=== PATIENT | female | born 1960 | race Caucasian/White ===

== ENCOUNTER 2024-01-17 05:00 | Observation (INO) ==
--- NOTE | 2023-12-25 11:08 | PAT Medication Instructions ---
Medication Instructions Date of Service December 25, 2023 Home Medications albuterol sulfate 90 mcg/actuation aerosol inhaler 1 - 2 puff inhalation UD PRN Wheezing aspirin 325 mg tablet 325 mg PO QAM epinephrine 0.3 mg/0.3 mL injection, auto-injector 0.3 mg subcut UD PRN Anaphylaxis ezetimibe 10 mg tablet 10 mg PO QAM famotidine 20 mg tablet 20 mg PO BID insulin glargine 100 unit/mL (3 mL) subcutaneous pen (Lantus Solostar U-100 Insulin) 10 unit subcut HS levothyroxine 25 mcg tablet 25 mcg PO HS metformin 1,000 mg tablet 1,000 mg PO BID montelukast 10 mg tablet 10 mg PO HS semaglutide 2 mg/dose (8 mg/3 mL) subcutaneous pen injector (Ozempic) 8 mg subcut Q7D triamcinolone acetonide 0.1 % topical cream 1 applic topical UD PRN Skin Irritation valsartan 80 mg-hydrochlorothiazide 12.5 mg tablet 2 tab PO BID Continue as directed epinephrine 0.3 mg/0.3 mL injection, auto-injector 0.3 mg subcut UD PRN Anaphylaxis (if needed) ASK your prescriber and surgeon aspirin 325 mg tablet 325 mg PO QAM STOP taking 7 days before surgery semaglutide 2 mg/dose (8 mg/3 mL) subcutaneous pen injector (Ozempic) 8 mg subcut Q7D STOP taking 24 hours before surgery triamcinolone acetonide 0.1 % topical cream 1 applic topical UD PRN Skin Irritation DO NOT take the morning of surgery metformin 1,000 mg tablet 1,000 mg PO BID valsartan 80 mg-hydrochlorothiazide 12.5 mg tablet 2 tab PO BID Take morning of surgery With a small sip of water, OTHERWISE NOTHING TO EAT OR DRINK AFTER MIDNIGHT: albuterol sulfate 90 mcg/actuation aerosol inhaler 1 - 2 puff inhalation UD PRN Wheezing (use if needed; please bring with you to hospital day of surgery if possible) ezetimibe 10 mg tablet 10 mg PO QAM famotidine 20 mg tablet 20 mg PO BID Take evening before surgery albuterol sulfate 90 mcg/actuation aerosol inhaler 1 - 2 puff inhalation UD PRN Wheezing (if needed) famotidine 20 mg tablet 20 mg PO BID insulin glargine 100 unit/mL (3 mL) subcutaneous pen (Lantus Solostar U-100 Insulin) 10 unit subcut HS levothyroxine 25 mcg tablet 25 mcg PO HS metformin 1,000 mg tablet 1,000 mg PO BID montelukast 10 mg tablet 10 mg PO HS valsartan 80 mg-hydrochlorothiazide 12.5 mg tablet 2 tab PO BID Other Notes If you have any questions please call us at [phone] or [phone] or [phone] or [phone]
--- NOTE | 2023-12-27 11:57 | Anesthesiology Consultation ---
Date of Service December 27, 2023 Assessment & Plan (1) Encounter for pre-operative examination: - check BSG am DOS. - semaglutide instructions: Patient informed at PAT visit to stop 7 days prior to surgery-voiced understanding. Patient advised to check with prescriber to see if alternative diabetic management changes recommended while holding semaglutide-if so, patient to call back to PAT to update chart and discuss if any further preop medication instructions needed. - Case discussed in detail with Dr. Mcneil who advised patient is acceptable to proceed if surgeon does not have concerns with elevated A1c. Surgeon's office made aware. - Outpatient joint assessment: Patient is currently scheduled for inpatient pathway. If re-evaluated and patient/surgeon requests outpatient pathway, patient is not recommended candidate for outpatient joint program from anesthesia standpoint. Chart Review Chart Review: Acceptable Risk for Surgery and Patient seen in Pre Admission Testing Teaching & Discussion Pre-Anesthesia Teaching/Discussion Notes: Instructed NPO after midnight before surgery, except medications with 15 cc of water. Medication instructions provided according to the PAT guidelines. History Surgery Operation Date: 01/17/24 08:50 Proposed Procedures p Right Total Hip Arthroplasty - Ramirez Haynes MD Height/Weight Height: 5 ft 10 in Weight: 133.4 kg Allergies Allergy/AdvReac Type Severity Reaction Status Date / Time clarithromycin Allergy itchy rash Verified 12/24/23 14:21 codeine Allergy Headache Verified 12/24/23 14:21 insulin glargine Allergy Hives Verified 12/24/23 14:21 Penicillins Allergy Rash Verified 12/24/23 14:21 perfume Allergy itching Verified 12/24/23 14:21 skin, SOB [id number] Reductase Allergy muscle Verified 12/24/23 14:21 Inhibitor necrosis sulfamethoxazole Allergy throat Verified 12/24/23 14:21 [From Bactrim] swelling, itch and rash sulfite Allergy swelling Verified 12/24/23 14:21 in throat, coughing trimethoprim [From Bactrim] Allergy throat Verified 12/24/23 14:21 swelling, itch and rash Medications Home Medications Medication Instructions Recorded Confirmed Last Taken albuterol sulfate 90 mcg/actuation 1 - 2 puff inhalation UD PRN 12/24/23 12/24/23 Unknown aerosol inhaler Wheezing aspirin 325 mg tablet 325 mg PO QAM 12/24/23 12/24/23 Unknown epinephrine 0.3 mg/0.3 mL 0.3 mg subcut UD PRN Anaphylaxis 12/24/23 12/24/23 Unknown injection, auto-injector ezetimibe 10 mg tablet 10 mg PO QAM 12/24/23 12/24/23 Unknown famotidine 20 mg tablet 20 mg PO BID 12/24/23 12/24/23 Unknown insulin glargine 100 unit/mL (3 10 unit subcut HS 12/24/23 12/24/23 Unknown mL) subcutaneous pen (Lantus Solostar U-100 Insulin) levothyroxine 25 mcg tablet 25 mcg PO HS 12/24/23 12/24/23 Unknown metformin 1,000 mg tablet 1,000 mg PO BID 12/24/23 12/24/23 Unknown montelukast 10 mg tablet 10 mg PO HS 12/24/23 12/24/23 Unknown semaglutide 2 mg/dose (8 mg/3 mL) 8 mg subcut Q7D 12/24/23 12/24/23 Unknown subcutaneous pen injector (Ozempic) triamcinolone acetonide 0.1 % 1 applic topical UD PRN Skin 12/24/23 12/24/23 Unknown topical cream Irritation valsartan 80 2 tab PO BID 12/24/23 12/24/23 Unknown mg-hydrochlorothiazide 12.5 mg tablet Past Medical History Medical History (Updated 12/27/23 @ 12:04 by Brianne Alcaraz PA-C) Asthma inh prn>"only gets in the spring"-last rescue inhaler use 2 months ago CLL (chronic lymphocytic leukemia) Diabetes mellitus, type 2 IDDM History of anesthesia reaction back in the , awareness during eyelid procedure and right heel Hyperlipidemia Hypertension controlled, stable per pt Hypothyroidism Seasonal allergies Sleep apnea BiPAP-compliant Patient denies h/o stroke, seizures, heart attack, heart failure, blood clots/DVTs or blood transfusions. Exercise / Class Metabolic Activity II 4-5 Yardwork/Stairs/Walk up hill (denies chest discomfort or shortness of breath with 1 FOS) Past Surgical History Surgical History (Updated 12/27/23 @ 12:04 by Brianne Alcaraz PA-C) History of lumbar discectomy History of surgical removal of skin lesion on eyelid-awareness during procedure History of tonsillectomy and adenoidectomy Hx of colonoscopy Hx of foot surgery sx on right heel Past Anesthesia History No Family Hx of Anesthesia Complications and Other (see above) History of PONV No Hx of PONV and No Hx of Motion Sickness Social History Smoking Status: Never smoker Do You Dip or Chew Tobacco: No Hx Alcohol Use: Yes alcohol intake frequency: holidays/special occasions only Hx Substance Use: No substance use type: does not use Review of Systems Patient reports having nasal congestion 8 days ago and home COVID tests were negative-symptoms have since resolved. Patient denies chest pain, shortness of breath, dyspnea on exertion, reflux, fever, chills, cough, wheezing, or palpitations. Physical Exam Vital Signs Vitals BP 128/82 P 67 TEMP 98.4 SP02 97% on RA RESP 18 Physical Patient resting comfortably in chair in no acute distress, alert and oriented, responding appropriately throughout visit Full cervical extension range of motion without pain TMD <3 finger breadths Mallampati Score 3 Dentition: several crowns, denies chipped or loose teeth, caps, implants or bridges Lungs: normal respiratory effort. Good air movement, clear throughout to auscultation, no adventitious breath sounds Cardiac: regular rate and rhythm, no murmurs noted Carotid arteries: negative bruit bilat Lab Results Anesthesia Preop Results Results Anesthesia Widget: WBC 16.02 K/ul (4.8-10.8) H 12/27/23 Hgb 13.4 g/dl (12.0-16.0) 12/27/23 Hct 41.6 % (37.0-47.0) 12/27/23 Plt 228 K/uL (130-400) 12/27/23 Na 137 mmol/L (136-145) 12/27/23 K 3.9 mmol/L (3.5-5.1) 12/27/23 Cl 100 mmol/L (98-107) 12/27/23 CO2 26 mmol/L (21-32) 12/27/23 BUN 22 mg/dl (6-23) 12/27/23 Creat 1.05 mg/dl (0.6-1.2) 12/27/23 Glucose Level 165 mg/dl (70-99(Fasting)) H 12/27/23 PT 10.9 Seconds (9.0-12.0) 02/09/24 PTT 26 Seconds (21-31) 12/27/23 INR 1.0 (0.9-1.1) 12/27/23 HA1c 8.4 % (4.5-5.6) H 12/27/23 Blood Type A Positive 12/27/23 Antibody Screen NEGATIVE 12/27/23 Testing Laboratory Results Surgeon's office made aware of elevated A1c. Electrocardiogram Date: 12/27/23 Unusual P axis, possible ectopic atrial rhythm Left axis deviation RBBB Chest X-Ray Date: 12/27/23 No active disease in the chest.
--- NOTE | 2024-01-12 09:04 | History & Physical Report ---
Date of Service January 12, 2024 Assessment & Plan (1) Arthritis of right hip: 63-year-old female with multiple medical comorbidities including obesity, hypertension, diabetes, elevated cholesterol, multiple allergies with advanced right hip arthritis. She is failed conservative measures. She like to have her hip fixed. Plan: Nona taken the operating do a right total hip replacement. The risks Mente this procedure explained to the patient and include but not limited to DVT PE infection neurological and vascular bleeding palm pain limb range of motion this is fairly her symptoms incomplete relief of symptoms excetra. The patient understands and desires to proceed. Informed consent was obtained. She struggled with diabetes control. We really encouraged her to get with her medical doctor and get this under as good control as possible. She understands that her size and with his diabetes the risk of infection and thrombosis is increased. She like to proceed. She is planned to be discharged with [facility] home health program. Her daughter who lives locally is can assist in her care. History of Present Illness Chief Complaint: . Right hip pain. Primary Care Provider: NO PCP . Patient is a 63-year-old female from [facility] [employer] and an employee at [employer] in [place] who presents specifically for surgical treatment of her right hip. She is about a 10-year history of increasing right hip pain discomfort describes gotten worse over time. Describes lateral hip pain groin pain thigh pain rating down to her knee. She been seen at [facility] and treated conservatively which has become less successful over time. Pains become more debilitating. She limps more as the day goes on. She would like to have her hip fixed. She comes to our institution as her daughter lives in this area to get help her recover. Patient does have a significant history of diabetes and struggles with diabetes control. Elevated A1c and that she has been trying to get this under better control with her primary care doctor. Allergies Allergy/AdvReac Type Severity Reaction Status Date / Time clarithromycin Allergy itchy rash Verified 12/24/23 14:21 codeine Allergy Headache Verified 12/24/23 14:21 insulin glargine Allergy Hives Verified 12/24/23 14:21 Penicillins Allergy Rash Verified 12/24/23 14:21 perfume Allergy itching Verified 12/24/23 14:21 skin, SOB [id number] Reductase Allergy muscle Verified 12/24/23 14:21 Inhibitor necrosis sulfamethoxazole Allergy throat Verified 12/24/23 14:21 [From Bactrim] swelling, itch and rash sulfite Allergy swelling Verified 12/24/23 14:21 in throat, coughing trimethoprim [From Bactrim] Allergy throat Verified 12/24/23 14:21 swelling, itch and rash Home Medications Medication Instructions Recorded Confirmed Type albuterol sulfate 90 mcg/actuation 1 - 2 puff inhalation UD PRN 12/24/23 12/24/23 History aerosol inhaler Wheezing aspirin 325 mg tablet 325 mg PO QAM 12/24/23 12/24/23 History epinephrine 0.3 mg/0.3 mL 0.3 mg subcut UD PRN Anaphylaxis 12/24/23 12/24/23 History injection, auto-injector ezetimibe 10 mg tablet 10 mg PO QAM 12/24/23 12/24/23 History famotidine 20 mg tablet 20 mg PO BID 12/24/23 12/24/23 History insulin glargine 100 unit/mL (3 10 unit subcut HS 12/24/23 12/24/23 History mL) subcutaneous pen (Lantus Solostar U-100 Insulin) levothyroxine 25 mcg tablet 25 mcg PO HS 12/24/23 12/24/23 History metformin 1,000 mg tablet 1,000 mg PO BID 12/24/23 12/24/23 History montelukast 10 mg tablet 10 mg PO HS 12/24/23 12/24/23 History semaglutide 2 mg/dose (8 mg/3 mL) 8 mg subcut Q7D 12/24/23 12/24/23 History subcutaneous pen injector (Ozempic) triamcinolone acetonide 0.1 % 1 applic topical UD PRN Skin 12/24/23 12/24/23 History topical cream Irritation valsartan 80 2 tab PO BID 12/24/23 12/24/23 History mg-hydrochlorothiazide 12.5 mg tablet Past Med/Surg History Medical History History of anesthesia reaction back in the , awareness during eyelid procedure and right heel Sleep apnea BiPAP-compliant Asthma inh prn>"only gets in the spring"-last rescue inhaler use 2 months ago Hypothyroidism CLL (chronic lymphocytic leukemia) Seasonal allergies Diabetes mellitus, type 2 IDDM Hyperlipidemia Hypertension controlled, stable per pt Surgical History History of surgical removal of skin lesion on eyelid-awareness during procedure History of lumbar discectomy Hx of foot surgery sx on right heel Hx of colonoscopy History of tonsillectomy and adenoidectomy Social History Smoking Status: Never smoker Second Hand Exposure: No; Do You Dip or Chew Tobacco: No; Tobacco Cessation Education Requested by Patient: No Hx Alcohol Use: Yes Hx Substance Use: No Preferred Language: Citizen Of [place] Communication Ability: Effective Research Fellow Required: No Beliefs That Will Affect Care: None Current Living Situation: Family and Significant Other Other Information That Helps Us Care for You: No Feels Safe at Home: Yes Safety Concerns: Feels Safe At This Time Assistive Devices: BiPap and Glasses Review of Systems All systems reviewed & are unremarkable except as noted in HPI & below. Physical Exam . Physical examination reveals a pleasant middle-aged female. Looks to be in reasonably good health. Examination of the right hip reveal patient walks with an antalgic gait. She limps on the right side. She is about half a centimeter shorter on the right leg compared to the left. She had a very stiff hip with internal rotation to -10. This recreates pain. Negative straight leg raise. She is neurologically intact. Constitutional WD/WN, vitals as above Neck trachea midline, no thyromegaly Respiratory normal respiratory effort, lungs clear to auscultation Cardiovascular RRR, no murmur, no edema Gastrointestinal (Abdomen) normal bowel sounds, soft, nontender, no hepatosplenomegaly Results & Data Results & Data Laboratory Results . Diagnostic Findings . X-rays the right hip are reviewed. Shows advanced right hip arthritis. She got complete loss of the joint space. She has subchondral sclerosis. She got osteophytes around the femoral head and acetabulum. PG Care Time/CCT Total # of Minutes Spent Total Time Spent with Patient: Total time spent is greater than 50% in coordination of care (as documented) at patient's floor/unit and/or counseling patient: Coding Level of Care Code None Diagnoses Arthritis of right hip M16.11
[2024-01-17] MEDS ORDERED: ceFAZolin 2000MG 2,000 MG/15 ML SYR IV SCH (06:00)
[2024-01-17] MEDS: ACETAMINOPHEN 500 MG TAB PO SCH ×2 (06:17→11:48)
[2024-01-17] MEDS: Scopolamine 1 MG TDSY TD SCH (06:18)
[2024-01-17] MEDS: METOCLOPRAMIDE HCL 10 MG TABLET PO SCH (06:18)
[2024-01-17] MEDS: FAMOTIDINE 20 MG TAB PO SCH ×2 (06:19→20:19)
[2024-01-17] MEDS: LR 60ML/HR IV SCH (06:19)
[2024-01-17] MEDS: CeleBREX 200 MG CAP PO SCH (06:19)
[2024-01-17] MEDS: LR 500ML BOLUS, THEN 15ML/HR IV SCH (06:19)
[2024-01-17] MEDS ORDERED: PROPOFOL IV EMULSION 10 MG/ML 20 ML VIAL IV ONE ×2 (06:21→08:11)
[2024-01-17] MEDS ORDERED: MIDAZOLAM HCL 1 MG/ML 2ML VIAL ONE ×2 (06:21→08:13)
[2024-01-17] MEDS ORDERED: fentaNYL citrate PF 100 MCG/2 ML VIAL ONE (06:21)
[2024-01-17] MEDS ORDERED: LIDOCAINE 2% 2 ML VIAL/AMP(20MG/ML) INFIL ONE (06:22)
[2024-01-17] MEDS ORDERED: DEXAMETHASONE SOD INJ 4 MG/ML VIAL ONE (06:22)
[2024-01-17] MEDS ORDERED: ONDANSETRON INJ 2 MG/ML 2 ML VIAL ONE (06:22)
[2024-01-17] MEDS ORDERED: BUPIVACAINE 0.5 % 5 MG/1 ML PF 10ML VIAL ONE (06:26)
--- NOTE | 2024-01-17 06:54 | History & Physical Bridge Note ---
Date of Service January 17, 2024 History & Physical Bridge Note I have examined the patient, reviewed the History & Physical and in the interval since the performance of the History & Physical I have noted the following changes of clinical significance: no changes noted
[2024-01-17] MEDS: TRANEXAMIC ACID 1,000 MG **IV Pre-op IV SCH (06:55)
[2024-01-17] MEDS ORDERED: ATROPINE SULFATE 0.1 MG/ML 10ML SYR IV PRN (07:31)
[2024-01-17] MEDS ORDERED: ePHEDrine sulfate 50 MG/ML AMP IV PRN (07:31)
[2024-01-17] MEDS ORDERED: ePHEDrine sulfate 50 MG/ML AMP ONE (07:43)
[2024-01-17] MEDS ORDERED: PHENYLEPHRINE 100MCG/ML 10ML SYR IV ONE (08:23)
[2024-01-17] MEDS: BUPIVACAINE/EPINEPHRINE 0.5% MPF 1:200,000 30 ML VIAL ONE (08:29)
[2024-01-17] MEDS: BUPIVACAINE 0.5 % 5 MG/1 ML MPF 30ML VIAL ONE (08:29)
--- NOTE | 2024-01-17 09:05 | Operative Report ---
PG Post Operative Report Pre & Post Diagnosis Operation Date: 01/17/24 07:00 Pre-Op Diagnosis: Arthritis of right hip Post-Op Diagnosis: Arthritis of right hip I identified the patient and participated in the time-out.: Yes Procedure Operation Date: 01/17/24 07:00 Actual Procedures p Right Total Hip Arthroplasty(Right) - Ramirez Haynes MD Surgeon Ramirez Haynes MD Boat Designer Cecilio Frazier PA-C Estimated Blood Loss 100 Findings Consistent with Post-Op Diagnosis Specimens Right femoral head sent for pathology. 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 She is failed conservative measures. X-rays show advanced hip arthritis. She does have fairly poorly controlled diabetes and we spent some time trying to optimize her medical situation. The patient is now indicated for surgical management. Description of Procedure Operative implants consist of: 1 Biomet G7 size 56 mm acetabular shell. 2. Gaines hole office agent. 3. 6.5 cancellous acetabular screws 1 at 35 mm length 1 to 25 mm length. 4. Highly cross-linked polyethylene liner with a 56 mm outer diameter, 36 mm inner diameter and a sparrow placed inferior and posterior. 5. DePuy Corail KLA 125 degree angle short stem size 12 femoral stem. 6. +5/36 mm ceramic articular ball. The patient was taken to the operating, identified, placed on the operating table in the supine position but all contact areas were appropriately padded. IV antibiotic 5 by anesthesia team. A spinal anesthetic and been implemented holding area. A Hooper catheter was placed in sterile fashion. The patient was then placed in the left lateral decubitus position. An axillary roll was placed. Stulberg hip positioner was used for positioning. The right hip and leg were then prepped and draped in usual sterile fashion. A posterolateral approach of the right hip was then performed to a curvilinear incision centered over the greater trochanter. Sharp dissection was got through subcutaneous tissue down to level the IT band gluteal fascia. The IT band gluteal fascia were incised longitudinally in line with skin incision. The underlying greater bursa was excised. The piriformis and external rotators along with the posterior hip joint capsule were then released from the posterior aspect hip as a single layer. Great care was taken throughout the procedure protect the sciatic nerve at all times. Hip was internally rotated and dislocated. A femoral neck osteotomy cut was made with Final Cut about 15 mm above the lesser trochanter. Femoral head was removed and sent for pathology. The femur was retracted anteriorly. Attention drawn the acetabulum. The tissues around the acetabulum are fairly stiff. I did have to excise the labrum and then do some soft tissue releases superior and anterior. The femur was retracted anteriorly. The pulmonary fat was excised. Sequential reaming the acetabular was then performed again with size 45 and progressing up 55. Her bone was extremely sclerotic. I then reamed a little bit with a 56 reamer and placed a 56 mm acetabular component in about 40 degrees lateral opening and 20 degrees of anteversion. It was fixed with two 6.5 screws. Anterior osteophyte was removed. A trial liner was placed. Attention drawn the femur. The proximal femur was entered with a cookie cutter followed by canal finder and. I then broached beginning with a size 8 and progressing up to a 12. Got excellent fitted to 12. Calcar reamer was used smoothed off the calcar. I then trialed the hip and the standard implants were just too tight in extension. Therefore I elected to use a short neck. We used a short neck with a +5 head and the hip was fully stable full extension and external rotation and flexion to 90 degrees internal rotation 50 degrees. The hip was still a bit tight size anterior but he felt her leg lengths are equal. We elect to place these implants. Nupathe all trial implants were removed. An apex hole office agent was placed. Highly cross-linked polyethylene liner was placed. I did use a sparrow in order to maximize her stability in flexion and internal rotation. A size 12 KLA short neck 125 degree angle femoral stem was placed. A +5/36 mm ceramic articular ball was placed. Hip was located and once again found to be stable. Attention drawn toward closing. The wound was irrigated close possible pulsatile lavage solution. I did inject locally with 60 cc of half percent Marcaine with epinephrine. The posterior capsule and external rotators then repaired through drill holes in the posterior trochanter with #2 Tycron suture. The IT band gluteal fascia then closed in 1 PDS suture in a running fashion. Subcutaneous tissues closed with 2 layers the deep layer #2 Vicryl suture and subcutaneous tissues with 2 Dexon suture in a buried interrupted fashion the skin was closed skin jt. Leg was then cleaned and dried and a Prevena VAC dressing was applied due to the thick soft tissue envelope. Patient then transferred to the recovery room in stable condition. Patient tolerated the procedure well and there were no complications. Cecilio Frazier, my physician assistant executive housekeeper, was present for the entire procedure. His assistance was essential and required for appropriate patient positioning, prepping and draping, surgical exposure, performing the technical details of the operation, placement the implants, closure of the wound, and placement of the sterile bandage. I attest to the content of the Intraoperative Record and any orders documented therein. Any exceptions are noted below.
--- NOTE | 2024-01-17 09:23 | XRay Report ---
AP PELVIS, CROSSTABLE LATERAL RIGHT HIP History: Right total hip arthroplasty. Degenerative arthritis. Postop. FINDINGS: The patient is status post a right total hip arthroplasty. The hardware is intact. No fract ure or dislocation. Skin jt are in place. IMPRESSION: Right total hip arthroplasty. No evidence for hardware complication ACT 112: Negative or not required by law. Electronically signed by: Julius Coleman M.D. 01/17/2024 9:21 AM
--- NOTE | 2024-01-17 10:20 | Anesthesiology Progress Note ---
Date of Service January 17, 2024 Anesthesia Post Procedure Vital Signs Vital Signs: Temp Pulse Pulse Resp BP Pulse Ox O2 Del Method 01/17/24 10:00 88 15 131/64 94 Room Air 01/17/24 09:50 90 20 107/72 96 Room Air 01/17/24 09:40 87 12 114/53 L 95 Room Air 01/17/24 09:30 36.5 C 88 17 126/57 L 97 Room Air 01/17/24 09:20 94 H 21 115/54 L 94 Room Air 01/17/24 09:10 90 17 109/51 L 95 Room Air 01/17/24 09:00 89 19 122/52 L 100 Oxymask 01/17/24 08:50 36.5 C 92 H 17 90/58 L 100 Oxymask 01/17/24 05:48 37.2 C 68 20 144/74 H 96 Room Air O2 Flow Rate 01/17/24 10:00 01/17/24 09:50 01/17/24 09:40 01/17/24 09:30 01/17/24 09:20 01/17/24 09:10 01/17/24 09:00 5 01/17/24 08:50 5 01/17/24 05:48 Pain Intensity Right Knee: Pain Intensity: 5 Transfer of Care Handoff Completed per policy Notes Mental Status: alert / awake / arousable Patient Amnestic to Procedure: Yes Nausea / Vomiting: adequately controlled Pain: adequately controlled Airway Patency, RR, SpO2: stable & adequate BP & HR: stable & adequate Hydration State: stable & adequate Neuraxial Anesthesia: was administered and sensory block is resolving Anesthetic Complications: no major complications apparent
[2024-01-17] MEDS ORDERED: NALOXONE HCL 0.4 MG/1 ML VIAL/CARP IV PRN (10:29)
[2024-01-17] MEDS ORDERED: PHARMACY GLYCEMIC MGMT CONSULT PRN (10:29)
[2024-01-17] MEDS ORDERED: diphenhydrAMINE Capsule 25 MG CAP PO PRN (10:29)
[2024-01-17] MEDS ORDERED: ONDANSETRON INJ 2 MG/ML 2 ML VIAL IV PRN (10:29)
[2024-01-17] MEDS ORDERED: ALBUTEROL HFA 8 GM INHALER INH PRN (10:29)
[2024-01-17] MEDS ORDERED: MAGNESIUM HYDROXIDE SUSP 30 ML UDC PO PRN (10:29)
[2024-01-17] MEDS ORDERED: TRIAMCINOLONE ACET 0.1% CR 15 GM TUBE TOP PRN (10:29)
[2024-01-17] MEDS ORDERED: bisacodyL 10 MG SUPP PR PRN (10:29)
[2024-01-17] MEDS ORDERED: NON-FORMULARY MEDICATION (Semaglutide [Ozempic] 2 mg/dose (8 mg/3 mL) pen injector) SQ SCH (10:29)
[2024-01-17] MEDS ORDERED: METOCLOPRAMIDE HCL INJ 5 MG/ML 2 ML VIAL IV PRN (10:29)
[2024-01-17] MEDS ORDERED: ALUMINUM/MAGNESIUM SUSP 30 ML UDC PO PRN (10:29)
[2024-01-17] MEDS ORDERED: HYDROmorphone INJ 0.5 MG/0.5 ML SYR IV PRN (10:29)
[2024-01-17] MEDS ORDERED: GLUCOSE 10 TAB/TUBE PO PRN (11:00)
[2024-01-17] MEDS ORDERED: CARBOHYDRATES FOR HYPOGLYCEMIA PO PRN (11:00)
[2024-01-17] MEDS ORDERED: DEXTROSE 50% 50 ML SYRINGE IV PRN (11:00)
[2024-01-17] MEDS ORDERED: GLUCOSE 40% GEL 15 GM TUBE PO PRN (11:00)
[2024-01-17] MEDS ORDERED: GLUCAGON FOR INJ 1 MG VIAL IM PRN (11:00)
[2024-01-17] MEDS: SODIUM CHLORIDE 0.9% 1,000 ML IV SCH (11:29)
[2024-01-17] MEDS: ASPIRIN 81 MG ECTAB PO SCH (11:47)
[2024-01-17] MEDS: SENNA 8.6 MG TAB PO SCH (11:47)
[2024-01-17] MEDS: DOCUSATE SODIUM 100 MG CAP PO SCH (11:47)
[2024-01-17] MEDS: KETOROLAC TROMETHAMINE 15 MG/ML VIAL IV SCH (11:47)
[2024-01-17] MEDS: MULTIVITAMIN TAB PO SCH (11:47)
--- NOTE | 2024-01-17 11:52 | Pharmacy Report ---
Pharmacy Glycemic Short Note 2 - Date of Service January 17, 2024 - Glycemic Short BSG Results (Last 24 hours): 01/17/24 01/17/24 01/17/24 05:41 08:53 09:01 POC Glucose 199 H 260 H 235 H 01/17/24 11:27 POC Glucose 242 H OUTPATIENT ANTIDIABETIC REGIMEN: * Lantus 14 units SQ qPM * Metformin 1 gm PO BID * Ozempic 8 mg SQ weekly (on Saturdays) * HbA1c: 8.4% (12/27/23) ASSESSMENT: * Ms Argueta is a 63yo diabetic F, POD 0 s/p R total hip this morning with Dr Haynes. * It appears as though pt received 4mg IV dexamethasone pre-operatively. Pt is scheduled to receive 10mg IV DXM tomorrow morning x1 dose. Expect pt to experience steroid-induced hyperglycemia as a result. * Fasting/pre-op BSGs were elevated this morning. * Metformin and Ozempic held post-op and pt initiated on SQ basal/bolus insulin regimen. * Pharmacy will follow and adjust regimen as indicated. PLAN FOR INPATIENT GLYCEMIC CONTROL: * Hold outpatient oral diabetes medications * Basal insulin * Lantus 30 units SQ post-op * Lantus 0-15 units SQ HS, based on BSG (see EMR for details) * Bolus insulin * NovoLog per scale ACHS or Q6hrs while NPO * Goal Range: Low 110 mg/dL - High 140 mg/dL * Correction Factor: 20 mg/dL/unit * Nutritional / Prandial insulin per carb ratio of 1 unit per 6 grams CHO consumed
[2024-01-17] MEDS: LANTUS PER UNIT CHARGE SC ONE (12:20)
[2024-01-17] MEDS: INSULIN ASPART PER UNIT CHARGE SC SCH (12:20)
[2024-01-17] MEDS: traMADol HCL 50 MG TABLET PO PRN (13:42)
[2024-01-17] MEDS: TRANEXAMIC ACID / 0.7% NACL 1,000 MG/100 ML BAG IV SCH (14:33)
[2024-01-17] MEDS: ceFAZolin 2000MG 2,000 MG/15 ML SYR IV SCH (14:35)
[2024-01-17] MEDS: Scopolamine CHECK PATCH PLACEMENT SCH (16:07)
[2024-01-17] MEDS: ASCORBIC ACID 500 MG TAB PO SCH (16:08)
[2024-01-17] MEDS: LANTUS PER UNIT CHARGE SC SCH (20:15)
[2024-01-17] MEDS: VALSARTAN 80 MG TAB PO SCH (20:17)
[2024-01-17] MEDS: hydroCHLOROthiazide 25 MG TAB PO SCH (20:18)
[2024-01-17] MEDS: MONTELUKAST SODIUM 10 MG TABLET PO SCH (20:18)
[2024-01-17] MEDS: LEVOTHYROXINE SODIUM 25 MCG TABLET PO SCH (20:18)
[2024-01-17] MEDS: LORATADINE 10 MG TAB PO SCH (20:18)
[2024-01-17] MEDS ORDERED: SENNA 8.6 MG TAB PO SCH (21:00)
--- OUTSIDE RECORDS SUMMARY | 2024-01-18 04:53 | External Medical Summary | Summary of Care ---
Author Name Unknown Organization [facility] Address [address] [place] [address] Phone [phone] Care Team Providers Care Biology Teacher Name Role Phone Jack Leahy MD Primary Care Provider + Reason for Visit * Reason Comments Dosage Adjustment In Person (Anticoag Cl inic) Diabetes Follow-Up Lipid Management Hypertension Encounter Details Date Type Department Care Team (Late st Contact Info) Description 01/16/2024 9:00 AM [facility], [place] [address] [place] [address] [facility], [facility] [address] [place] [address] Type 2 diabetes mellitus without complication, without long-term current use of insulin ([facility])* Allergies Active Allergy Reactions Criticality Noted Date Comments Bactrim Edema airway,Itching High 02/23/2013 Clarithromycin Itching 12/04/2019 Codeine Other (Please comment) 02/23/2013 Headache Food (See Comments) 02/23/2013 Sulfites in foods Gluten Edema Other,Flushing 07/02/2014 Insulin Glargine Rash 07/08/2023 Other Allergy (See Comments) 02/23/2013 Cleaning solutions and certain perfumes,grass Penicillins Rash 02/23/2013 Pollen Itching 02/23/2013 Statins Muscle pain 02/23/2013 With rhabdomyolosis - tried two different statin with same results Insulin Degludec Rash 07/08/2023 documented as of this encounter (statuses as of 01/16/2024) Medications Medication Sig Dispensed Refills Start Date End Date Status CLARITIN 10 MG PO TABS 1 tab by mouth once daily 0 Active Misc. Devices MISC Use as directed at bedtime. CPAP 0 Active Vitamin D, Cholecalciferol, 1000 UNITS TABS Take 1 Tablet by mouth in the morning. 0 Active B Complex Vitamins (VITAMIN-B COMPLEX) Tablet Take 1 Tab by mouth daily. 0 Active NATURAL SUPPLEMENTIndication s:R lipoic acid 100mg 2 tabs in the morning Take by mouth daily. Indications: R lipoic acid 100mg 2 tabs in the morning 0 Active Cranberry 42741 MG CAPS Take by mouth daily. 0 Active Albuterol Sulfate HFA 108 (90 Base) MCG/ACT Inhalation Aerosol Solution Inhale two puffs every four hours for cough, wheeze, shortness of breath as needed. 36 g 3 03/16/2022 Active metFORMIN HCl 1000 MG Oral Tablet (Glucophage)Indicati ons:Type 2 diabetes mellitus with hemoglobin A1c goal of less than 7.0% (HCC) TAKE ONE TABLET BY MOUTH TWICE A DAY WITH MORNING AND EVENING MEALS 200 Tablet 3 04/22/2023 4 Active Levothyroxine Sodium 25 MCG Oral Tablet (Levoxyl)Indications :Acquired hypothyroidism TAKE 1 TABLET BY MOUTH DAILY AT LEAST 30 MINUTES PRIOR TO FIRST MEAL OF THE DAY OR OTHER MEDICATIONS 90 Tablet 2 02/20/2023 4 Active Ezetimibe 10 MG Oral Tablet (Zetia)Indications:D yslipidemia, goal LDL below 100 TAKE ONE TABLET BY MOUTH EVERY MORNING 90 Tablet 3 07/11/2023 4 Active Aspirin 325 MG Oral Tablet Take 2 Tablets by mouth in the morning. with food.. 100 Tablet 5 07/29/2023 Active Olopatadine HCl 0.6 % Nasal Solution USE TWO SPRAYS IN EACH NOSTRIL TWICE A DAY 91.5 g 3 09/02/2023 Active Ozempic (2 MG/DOSE) 8 MG/3ML Subcutaneous Solution Pen-injector (Semaglutide (2 MG/DOSE))Indications :Type 2 diabetes mellitus without complication, without long-term current use of insulin (HCC) Inject 2 mg under the skin once a week. 9 mL 3 09/16/2023 Active FreeStyle Carlos 3 Sensor USE DIRECTED TO CHECK GLUCOSE 6 Each 3 10/31/2023 4 Active Arexvy 120 MCG/0.5ML Intramuscular Suspension Reconstituted 0 10/09/2023 Active Famotidine 20 MG Oral Tablet (Pepcid) Take one tablet by mouth twice per day. 180 Tablet 3 11/28/2023 Active EPINEPHrine 0.3 MG/0.3ML Injection Solution Auto-injector (Autoinjector) FOR A SEVERE REACTION INJECT IN THE OUTER THIGH FOLLOWING INSTRUCTIONS ON PACKAGE AND GO TO THE EMERGENCY ROOM 2 Each 1 12/04/2023 5 Active Fluticasone-Salmeter ol 250-50 MCG/ACT Inhalation Aerosol Powder Breath Activated (Advair Diskus) INHALE ONE PUFF BY MOUTH IN THE MORNING AND ONE PUFF BEFORE BEDTIME 180 Each 3 12/04/2023 5 Active Valsartan-hydroCHLOR Othiazide 80-12.5 MG Oral Tablet (Diovan Hct)Indications:Hype rtension goal BP (blood pressure) < 140/90 Take 2 Tablets by mouth in the morning. 20 Tablet 0 12/05/2023 Active Valsartan-hydroCHLOR Othiazide 80-12.5 MG Oral Tablet (Diovan Hct) Take 2 Tablets by mouth in the morning. 200 Tablet 3 12/05/2023 Active NovoLOG FlexPen 100 UNIT/ML Subcutaneous Solution Pen-injector (insulin aspart)Indications:T ype 2 diabetes mellitus without complication, without long-term current use of insulin (HCC) Inject 8-10 units under the skin three times daily with meals 0 12/19/2023 Active BD Pen Needle Nadia 2nd Gen 32G X 4 MM (Insulin Pen Needle)Indications:T ype 2 diabetes mellitus without complication, without long-term current use of insulin (HCC) Use with insulins 3x daily 300 Each 1 12/23/2023 Active Insulin Glargine Solostar 100 UNIT/ML Subcutaneous Solution Pen-injector (Lantus SoloStar)Indications :Type 2 diabetes mellitus without complication, without long-term current use of insulin (HCC) Inject 10 Units under the skin daily. 15 mL 0 12/23/2023 Active documented as of this encounter (statuses as of 01/16/2024) Active Problems Problem Noted Date Diagnosed Date CLL (chronic lymphocytic leukemia) 01/24/2018 Allergic asthma, moderate persistent, uncomplica trung 01/21/2018 Environmental allergies 01/21/2018 Statin intolerance 07/12/2017 Acquired hypothyroidism 12/12/2015 DM w/o complication type II 08/23/2015 Overview: Since 10/02 Allergic rhinitis 07/30/2013 Obstructive sleep apnea 07/07/2013 Obesity, morbid (more than 1 00 lbs over ideal weight or BMI > 40) 07/07/2013 Dyslipidemia, goal LDL below 70 02/23/2013 Hypertension goal BP (blood pressure) < 140/90 documented as of this encounter (statuses as of 01/16/2024) Resolved Problems Problem Noted Date Diagnosed Date Resolved Date Edema 09/27/2016 07/29/2023 Advanced directives, counseling/discussion 07/15/2015 07/12/2017 Asthma with severity to be determined 12/28/2014 02/09/2016 Asthma, cough variant 12/28/20142016 Metabolon Quantose IR Resear Study*[id number] 08/02/2014 10/27/2014 Overview: METABOLON QUANTOSE IR STUDY. PROJECT: #[id number], FLUX PLANT OPERATOR: Toni Hopkins MD. SUMMARY: The Use of a Novel Insulin Resistance Test as a Monitoring Indicator of Glycemic Control in Prediabetics and Diabetics treated with metformin combined with lifestyle intervention. CONTACTS: During normal business hours, contact Justina Glez RN, CCRC at ; after hours Density Control Puncher via the [facility] hospital teasel gig operator Chronic rhinitis 07/30/2013 01/04/2017 Cough 07/30/2013 01/04/2017 Cough due to bronchospasm 07/30/2013 Oral allergy syndrome 07/30/20132016 KLAUDIA on CPAP 02/23/2013 11/12/2013 Hypertrichosis 02/23/2013 08/11/2018 documented as of this encounter (statuses as of 01/16/2024) Immunizations Name Administration Dates Next Due COVID-19 mRNA, LNP-s, No Pre serve, 2-Dose Series (ContentDJ) 08/18/2021,12/03/2020,11/12/2020 COVID-19, LNP-s, No Preserve , Isauro-sucrose, Ages 12+ (Pfizer) 03/06/2022 COVID-19, MRNA-LNP, 23-24, P F, 30 MCG/0.3 mL, 12 YRS AND ABOVE, IM (PFIZER-Comirnaty) 08/14/2023 Covid-19, Mrna, Lnp-s, Pf, B ivalent, 30 Mcg, IM, 12 yrs and above (Pfizer) 08/02/2022 Pneumococcal Conjugate Vacc, 13 Valent (Prevnar) 09/27/2016 Pneumococcal Polysaccharide PPV23 (Pneumovax) 01/10/2018 Seasonal Influenza, PF, 6 M & above, IM , (FluLaval or Fluzone) 08/03/2023,08/16/2022,09/07/2021,07/30,08/19/2019,08/11/2018 Seasonal Influenza, Split, I IV3, With Preserve, Inj 08/15/2017,08/24/2016,08/22/2015 TDAP (age 10 and older)(Boostrix) 11/07/2022 Varicella Zoster Vaccine (Adult) 10/29/2016 Zoster Vaccine Recombinant (Shingrix) 03/19/2022 ,01/15/2022 documented as of this encounter Social History Tobacco Use Types Packs/Day Years Used Date Smoking Tobacco: Never Smokeless Tobacco: Never Alcohol Use Standard Drinks/Week Comments Yes 0 (1 standard drink = 0.6 oz pur e alcohol) rare- less than once a month PHQ-2 Answer Date Recorded PHQ Adult Total Score 0 01/15/2022 Hunger Vital Sign Answer Date Recorded Within the past 12 months, y ou worried that your food would run out before you got the money to buy more. Never true 11/07/20 22 Within the past 12 months, t he food you bought just didn't last and you didn't have money to get more. Never true 11/07/2022 Sex and Gender Information Value Date Recorded Sex Assigned at Female 07/13/2019 10:08 AM EDT Gender Identity Female 07/13/2019 10:08 AM EDT Sexual Orientation Lesbian 07/13/2019 10 :08 AM EDT Job Start Date Occupation Industry Not on file Not on file Not on file documented as of this encounter Functional Status Functional Status Response Date of Assess ment Are you deaf or do you have serious difficulty h earing? No 01/30/2016 Are you blind or do you have serious difficulty seeing, even when wearing glasses? No 01/30/2016 Do you have serious difficul ty walking or climbing stairs? (5 years old or older) No 01/30/2016 Do you have difficulty dress ing or bathing? (5 years old or older) No 01/30/2016 Because of a physical, menta l, or emotional condition, do you have difficulty doing errands alone such as visiting a doctor s office or shopping? (15 years old or older) No 01/30/20 16 Cognitive Status Response Date of Assessm ent Because of a physical, menta l, or emotional condition, do you have serious difficulty concentrating, remembering, or making decisions? (5 years old or older) No 01/30/2016 documented as of this encounter Progress Notes * Yan Garcia, [facility] - 01/16/2024 9:15 AM EST Images from the original note were not included. Medication Therapy [facility] - Diabetes Management Progress Note Marion Argueta, identified by name and date of , is a 63 year old female being seen for diabetesmanagement/education. Patient presents for return diabetic visit. DIABETES: Current diabetic medications: Novolog 8-10 units TID with meals Lantus 12 units daily Ozempic 2mg weekly Metformin 1000mg BID Prior: Jardiance - UTI Lantus - rash? Tresiba - rash? Medication Injection Site: Abdomen Lifestyle: Diet: unchanged Glucose Review/SMBG: Readings obtained from patient device Hypoglycemia: Does your blood sugar go below 70 mg/dL? No Hyperglycemia symptoms present: none Recent Labs Units 06/17/23 0737 01/19/23 0851 HEMOGLOBIN A1C - [facility] % 7.9* 9.8* Recent Labs Units 06/17/23 0737 01/19/23 0851 02/10/22 1056 ESTIMATED GLOMERULAR FILTRATION RATE - [facility] mL/min >90 >90 >90 CREATININE - [facility] mg/dL 0.7 0.7 0.6 HYPERTENSION: Patient on ACEi/ARB: yes BP Readings from Last 3 Encounters: 11/28/23 180/81 09/06/23 150/68 09/02/23 164/77 Blood pressure at goal: no HYPERLIPIDEMIA: Patient is taking moderate or high intensity statin: no on zetia HEALTH MAINTENANCE REVIEW: Health Maintenance Due Topic Date Due Pneumococcal Vaccine: 65+ Years (3 of 3 - PPSV23 or PCV20) 01/10/2023 Depression Screening 01/15/2023 DXA Scan Never done PAP SMEAR-EVERY 5 YRS,AGES 21-100 08/07/2023 *NEPHROLOGY REFERRAL DUE TO RESISTANT HTN Never done Diabetic Eye Exam 11/07/2023 HbA1c 12/18/2023 TSH 01/20/2024 ASSESSMENT & PLAN: ICD-10-CM 1. Type 2 diabetes mellitus without complication, without long-term current use of insulin (HCC) E11.9 A1c was between 7-8% at [facility] (unsure of exact result) BG Readings - Blood sugars uncontrolled. Carlos upload above, maybe ~10mg/dL better than last visit but still technically above goal. BG trend similar, flat all day without singificant fluctuations. Did go a few days this week without a sensor on. No overt lows. Medications - Reviewed current regimen, patient is adherent to regimen. No major issues with restarting lantus. Rash did not fully return (although she noticed some itching). Will increase lantus dose slightly today. Diet, Exercise, Lifestyle - Hip surgery tomorrow! Will be off work for 3 weeks. Patient aware that BGs may fluctuate post op and I am comfortable with her self adjusting her insulin to work around that. Patient aware to contact clinic if any hypoglycemia before next visit. MEDICATION CHANGES: Diabetic Medications: Novolog 8-10 units TID with meals INCREASE Lantus 14 units daily Ozempic 2mg weekly Metformin 1000mg BID FOLLOW UP: Return to clinic in 6 weeks 02/26/2024 Yan Garcia, PharmD, BCPS, BCACP Clinical Pharmacist - Printmaker Medication Therapy Management 01/16/2024, 9:25 AM documented in this encounter Plan of Treatment Upcoming Encounters Date Type Department Care Team (Late st Contact Info) Description 01/29/2024 9:30 AM EDT Telemedicine Allergy/Immunology, [place] [address] [place] [address] Jess Clinton PA-C [address] [place] [address] 02/26/2024 11:30 AM EDT Telemedicine Pharmacy, [address] [address] [facility] [place] [address] [place] [address] 05/18/2024 3:30 PM EDT Office Visit Podiatry, [place] [address] [place], [place] [phone] Tressa Manzo, DPM [address] [place] [address], [place] [phone] Health Maintenance Due Date Last Done Comments Colonoscopy 2003 Sigmoidoscopy 2003 Fecal Occult Blood Test 07/15/2016 07/15/2015 Pneumococcal Vaccine: 65+ Years (3 of 3 - PPSV23 or PCV20) 01/10/2023 01/10/2018, 09/27/2016 Depression Screening 01/15/2023 01/15/2022 DXA Scan 2023 PAP SMEAR-EVERY 5 YRS,AGES 21-100 08/07/2023 08/07/2018, 08/07/2018 *NEPHROLOGY REFERRAL DUE TO RESISTANT HTN 09/04/2023 Diabetic Eye Exam 11/07/2023 11/07/2022, , 10/16/2021, Additional history exists HbA1c 12/18/2023 06/17/2023, 03/0 02/2023, 01/13/2022, Additional history exists B-12 01/20/2024 01/19/2023, 05/19, 12/08/2019, Additional history exists TSH 01/20/2024 01/19/2023, 05/19, 07/21/2019, Additional history exists Albumin/Creatinine Ratio 06/17/2024 023, 06/15/2021, 07/13/2019, Additional history exists GFR 06/17/2024 06/17/2023, 03/0 02/2023, 02/10/2022, Additional history exists Diabetic Foot Exam 07/11/2024 07/11/2023, 0 02/28/2022, 01/15/2022, Additional history exists Mammogram 11/25/2024 11/25/2023, 10/19, 11/09/2022, Additional history exists Cologuard 02/09/2025 02/09/2022, 01/17, 02/04/2022 Colorectal Cancer Screening 02/09/2025 Lipid Panel 06/17/2028 06/17/2023, 03/0 02/2023, 08/24/2021, Additional history exists DTaP,Tdap,and Td Vaccines (3 - Td or Tdap) 11/07/2032 11/07/2022, 08/18/2012 Pap Smear Discontinued 08/07/2018, 08/07/2018 Zoster Vaccines Completed 03/19/2022, 12/20, 10/29/2016 Influenza Vaccine (FLU shot) Completed 08/03/2023, 08/16/2022, 09/07/2021, Additional history exists COVID-19 Vaccine Completed 08/14/2023, , 03/06/2022, Additional history exists GARDASIL-HPV IMMUNIZATION SERIES Aged Out No longer eligible based on patient's age to complete this topic Hepatitis B Aged Out No longer eligi ble based on patient's age to complete this topic MENINGOCOCCAL (MENACTRA/MENVEO) Aged Out No longer eligible based on patient's age to complete this topic documented as of this encounter Medical Devices Not on filedocumented as of this encounter Visit Diagnoses Diagnosis Type 2 diabetes mellitus without complication, without long-term current use of insulin (HCC)- Primary documented in this encounter Advance Directives Documents on File Type Date Recorded Patient Nursing Attendant Expl anation Power of Wildland Fire Operations Specialist 08/23/2023 9:56 [facility] [id number] Healthcare Agents on File Name Relationship Healthcare Agent Relationship Communication Tori LEWIS Adult Child First Alternat e Health Care Agent (per Health Care Power of Wildland Fire Operations Specialist document) [email or web address] Hurleya Naveen Significant Other Health Care Ag ent (per Health Care Power of Wildland Fire Operations Specialist document) [email or web address] Care Teams Biology Teacher Relationship Specialty Start Date End Date Jack Leahy MD [address] [place], [place] [address] [phone] PCP - General Family Medicine 11/07/22 documented as of this encounter
[2024-01-18 06:28] LABS: Hematocrit (blood only) 32.5 % (37.0-47.0); Mean Corpuscular Hemoglobin 27.6 pg (25.0-34.0); Mean Corpuscular Hgb Conc 33.8 g/dL (32.0-36.0); Mean Corpuscular Volume 81.7 fL (80.0-100.0); Mean Platelet Volume 11.2 fL (9.4-12.4); Platelet Count 185 K/uL (130-400); RDW Coefficient of Variation 14.4 % (11.5-14.5); RDW Standard Deviation 42.5 fL (36.4-46.3); Red Blood Count 3.98 M/uL (4.20-5.40); White Blood Count 17.79 K/ul (4.8-10.8)
[2024-01-18 06:42] LABS: BUN Creatinine Ratio 29.2 (10-20); Calcium 8.6 mg/dl (8.6-10.3); Creatinine Clr Calc Pharmacy 94.6 ml/min; Est GFR (African American) 78.8 ml/min; Potassium 3.7 mmol/L (3.5-5.1)
--- NOTE | 2024-01-18 07:16 | Surgery Progress Note ---
Date of Service January 18, 2024 Assessment & Plan (1) Status post right hip replacement: Plan: 63-year-old female postop day 1 from right hip replacement doing well. Pain is controlled. Hips located. She is neurologically intact. Plan: 1. DVT prophylaxis including thigh-high teds, SCDs, aspirin twice a day for 6 weeks. 2. PT/OT. Weight-bear as tolerated right total hip protocol. 3. Pain control doing well with current pain regimen. 4. Disposition plan is to discharge home with some home health if she does okay in therapy today. Admission and Anticipated Discharge Date Admission Date: January 17, 2024 Subjective 63-year-old female postop day 1 from a right hip replacement. She is doing pretty well this morning. Had a good night. Slept quite a bit. Pain is controlled. She is up and walking last evening. No chest pain or shortness of breath. Not feeling dizzy or lightheaded. Physical Exam Physical Exam: Examination of the right leg reveals patient lying in bed looks comfortable. Her leg lengths are equal. Prevena VAC VAC dressing is in place. Thigh is soft and supple. She is neurologically intact. Hip is located. Respiratory: normal respiratory effort, lungs clear to auscultation Cardiovascular: RRR, no murmur, no edema Gastrointestinal (Abdomen): normal bowel sounds, soft, nontender, no hepatosplenomegaly Results & Data Vital Signs (Past 12 Hours) Vital Signs Temp Pulse Resp BP Pulse Ox O2 Del Method 01/18/24 03:59 36.8 C 76 18 165/80 H 98 Room Air 01/17/24 23:07 36.8 C 74 16 149/82 H 98 CPAP 01/17/24 22:36 CPAP Laboratory Results Hemoglobin is 11.0. Hematocrit is 32.5. Electrolytes are stable. PG Care Time/CCT Total # of Minutes Spent Total Time Spent with Patient: Total time spent is greater than 50% in coordination of care (as documented) at patient's floor/unit and/or counseling patient: Coding Level of Care Code 66641 Post Operative Follow-Up Diagnoses Status post right hip replacement Z96.641
[2024-01-18 07:54] LABS: Basophils # (auto) 0.07 K/uL (0.00-0.20); Basophils % (auto) 0.4 %; Eosinophils # (auto) 0.17 K/uL (0.00-0.50); Immature Granulocytes # (auto) 0.09 K/uL (0.01-0.20); Immature Granulocytes % (auto) 0.5 %; Lymphocytes # (auto) 7.44 K/uL (1.20-3.40); Lymphocytes % (auto) 41.8 %; Monocytes # (auto) 1.54 K/uL (0.11-0.59); Monocytes % (auto) 8.7 %; Neutrophils # (auto) 8.48 K/uL (1.40-6.50); Neutrophils % (auto) 47.6 %; Smudge Cells Present
[2024-01-18] MEDS: EZETIMIBE 10 MG TAB PO SCH (07:55)
[2024-01-18] MEDS: LANTUS PER UNIT CHARGE SC ONE (08:06)
[2024-01-18] MEDS: dexAMETHasone 10 MG in SYRINGE 0 ML IV SCH (08:07)
--- NOTE | 2024-01-25 17:22 | Discharge Summary ---
Date of Service January 25, 2024 Discharge Data Procedures Performed Operation Date: 01/17/24 07:00 Actual Procedures p Right Total Hip Arthroplasty(Right) - Ramirez Haynes MD Hospital Course (1) Status post right hip replacement: This is a 63 year old patient admitted on 01/17/24 and underwent total hip arthroplasty. She tolerated the procedure well and there were no complications. Transferred to the PACU post op and later to the orthopedic floor for further care. She was given ancef for antibiotic prophylaxis. She was also given SHELBY stockings, SCDs, and aspirin for DVT prophylaxis. Hemoglobin, hematocrit, and vital signs were monitored during her hospital stay and remained stable. Did not require any blood transfusions. There were no complications during her hospital stay. By post op day #1 the patient was tolerating a diabetic diet, pain was reasonably controlled with oral pain medicine, and she was participating in physical therapy. On post op day #1 the patient was discharged home and set up with home health care. She was given printed discharge instructions including prescriptions for extra strength tylenol, aspirin,cefadroxil, ketorlac, zofran, senokot, and tramadol. Continue hip precautions. Continue physical therapy, weight bearing as tolerated. Continue SHELBY stockings. Follow up approximately 2 weeks post op or sooner if there are problems or concerns. Coding Level of Care Code None Diagnoses Status post right hip replacement Z96.641
== END 2024-01-18 11:43 | disposition home health service (06) ==
LOC: ASU 05:00 → 3E 05:00
DX: M25.751 Osteophyte, right hip; Z88.8 Allergy status to other drugs, medicaments and biological substances; Z79.899 Other long term (current) drug therapy; E78.00 Pure hypercholesterolemia, unspecified; Z91.09 Other allergy status, other than to drugs and biological substances; Z79.82 Long term (current) use of aspirin; Z88.0 Allergy status to penicillin; M16.11 Unilateral primary osteoarthritis, right hip; Z88.5 Allergy status to narcotic agent; Z79.890 Hormone replacement therapy; C91.10 Chronic lymphocytic leukemia of B-cell type not having achieved remission; Z79.4 Long term (current) use of insulin; Z79.85 Long-term (current) use of injectable non-insulin antidiabetic drugs; Z68.41 Body mass index [BMI] 40.0-44.9, adult; Z88.1 Allergy status to other antibiotic agents; Z79.84 Long term (current) use of oral hypoglycemic drugs; E11.9 Type 2 diabetes mellitus without complications; I10 Essential (primary) hypertension; E03.9 Hypothyroidism, unspecified; M65.9 Synovitis and tenosynovitis, unspecified; E66.01 Morbid (severe) obesity due to excess calories; J45.909 Unspecified asthma, uncomplicated; I45.10 Unspecified right bundle-branch block; G47.33 Obstructive sleep apnea (adult) (pediatric); Z88.2 Allergy status to sulfonamides